=== PATIENT | female | born 1955 | race Caucasian/White ===

== ENCOUNTER 2018-09-26 15:44 | Emergency (ER) | payer MEDICAID ==
[~2018-09-26] VITALS: Ht 139.7 cm; Wt 65.9 kg
[2018-09-26 15:46] VITALS: Ht 139.7 cm; Wt 65.9 kg
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
[2018-09-26] MEDS ORDERED: ONDANSETRON 4 MG INJ IV ONE (16:30)
[2018-09-26] MEDS ORDERED: HYDROmorphONE 2 MG/ML SYG IV ONE (16:30)
[2018-09-26] MEDS ORDERED: HYDR-3980 PO (19:06)
[2018-09-26] MEDS ORDERED: IBUP-1542 PO (19:06)
[2018-09-26 19:47] VITALS: BP 148/93; PULSE 59; RESP 16
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
== END 2018-09-26 19:50 | disposition home or self-care (01) ==
LOC: E/R 15:44
DX: S43.102A Unspecified dislocation of left acromioclavicular joint, initial encounter (principal); I10 Essential (primary) hypertension; R51 Headache; V43.52XA Car driver injured in collision with other type car in traffic accident, initial encounter
CPT/HCPCS: 70450; 72125; 73000; 73030; 96374; 96375; J1170; J2405; Z7502; Z7610

== ENCOUNTER 2018-10-04 14:27 | Emergency (ER) | payer MEDICAID ==
[~2018-10-04] VITALS: Ht 157.5 cm; Wt 64.2 kg
[~2018-10-04 14:27] MED LIST: HYDR-3980 PO; IBUP-1542 PO
[2018-10-04 14:47] VITALS: Ht 157.5 cm; Wt 64.2 kg
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
[2018-10-04] MEDS ORDERED: ACET325T33 PO (16:57)
[2018-10-04] MEDS ORDERED: IBUP-1542 PO (16:57)
[2018-10-04 17:48] VITALS: BP 134/76; PULSE 76; RESP 19
== END 2018-10-04 17:49 | disposition home or self-care (01) ==
LOC: FTE 14:27
DX: M79.602 Pain in left arm (principal); I10 Essential (primary) hypertension; S43.102A Unspecified dislocation of left acromioclavicular joint, initial encounter; V89.9XXA Person injured in unspecified vehicle accident, initial encounter
CPT/HCPCS: 99282